=== PATIENT | female | born 1995 | race African-American/Black ===

== ENCOUNTER → 2017-07-03 | Outpatient (CLI) | payer OTHER ==
--- NOTE | 2017-07-03 15:37 | REP ---
Clinical: Anatomical evaluation. Comparison: None . Findings: Examination demonstrates a single live intrauterine in cephalic presentation. motion is identified by technologist. Placenta is noted anteriorly and grade zero without evidence for placenta previa or abruption. Amniotic fluid volume is normal. Cervix measures 3.5 cm in length and appears closed. No evidence for nuchal cord. Gestational age by LMP 90 weeks 6 days with SANDIP 11/21/2017 . Gestational age by current measurements 18 weeks 6 days with SANDIP 11/28/2017 . FHR equals 144 beats per minute. BPD 4.4 cm 19 weeks 2 days HC 15.8 cm 18 weeks 5 days AC 13.0 cm 18 weeks 4 days FL 3.1 cm 19 weeks 4 days HL 3.0 cm 19 weeks 6 days HC/AC ratio 1.21 Estimated weight 269 grams ( 50th percentile). Anatomical assessment demonstrates normal structures including cranium, choroid plexus, cavum, cerebellum/posterior fossa, facial features, lungs, four-chamber heart/ventricular outflow tracts, diaphragm, stomach, cord insertion/three-vessel cord, kidneys/bladder, spine, and extremities. Impression: Single live intrauterine in cephalic presentation demonstrating appropriate interval growth. Anatomical assessment is complete and normal. No gross abnormalities are identified. Signed by Nii Coles MD 07/03/2017 03:29 P
== END ==
LOC: M SMT 12:35
PROVIDERS: ATTEND Advanced Practice Midwife
DX: Z36.2 Encounter for other antenatal screening follow-up (principal); Z3A.19 19 weeks gestation of pregnancy

== ENCOUNTER → 2017-08-22 | Outpatient (CLI) | payer OTHER ==
[2017-08-22 12:11] LABS: GLUCOSE CHALLENGE TEST 1 HOUR 130 MG/DL (LESS THAN 140)
[2017-08-22 12:13] LABS: MEAN CORPUSCULAR HEMOGLOBIN 30.8 pg (27.0-33.0); MEAN CORPUSCULAR HGB CONC 33.3 g/dl (32.0-36.5); MEAN CORPUSCULAR VOLUME 92.3 fl (80.0-96.0); PLATELET COUNT, AUTOMATED 252 10^3/uL (150-450); RED CELL DISTRIBUTION WIDTH 12.5 % (11.5-14.5); WHITE BLOOD COUNT 10.1 10^3/uL (4.0-10.0)
== END ==
LOC: M SMT 09:42
DX: Z34.82 Encounter for supervision of other normal pregnancy, second trimester (principal)
CPT/HCPCS: 82950

== ENCOUNTER → 2017-09-20 | Outpatient (CLI) | payer OTHER | LOC: M SMT 12:55 | DX: Z34.83 Encounter for supervision of other normal pregnancy, third trimester (principal) | CPT/HCPCS: 76816 ==

== ENCOUNTER → 2017-10-28 | Outpatient (CLI) | payer OTHER | LOC: M SMT 11:03 | DX: O26.843 Uterine size-date discrepancy, third trimester (principal); Z3A.36 36 weeks gestation of pregnancy | CPT/HCPCS: 87081 ==

== ENCOUNTER → 2017-10-28 | Outpatient (REF) | payer OTHER | LOC: M LAB REF 12:00 | DX: Z34.83 Encounter for supervision of other normal pregnancy, third trimester (principal) ==

== ENCOUNTER 2017-11-22 02:05 | Inpatient (IN) | payer OTHER ==
[2017-11-22] MEDS: LR 1,000 ML IV ×3 (05:44→21:44)
[2017-11-22] MEDS: LACTATED RINGER'S 1000 ML IV (05:44)
[2017-11-22 06:36] LABS: HEMATOCRIT 40.2 % (36.0-47.0); HEMOGLOBIN 13.7 g/dl (12.0-15.5); MEAN CORPUSCULAR HGB CONC 34.1 g/dl (32.0-36.5); PLATELET COUNT, AUTOMATED 256 10^3/uL (150-450); RED BLOOD COUNT 4.57 10^6/uL (4.00-5.40); RED CELL DISTRIBUTION WIDTH 13.1 % (11.5-14.5); WHITE BLOOD COUNT 15.2 10^3/uL (4.0-10.0)
[2017-11-22] MEDS ORDERED: FENTANYL 2MCG/ML ROPIVACAINE 0.2% IN 0.9% NACL 200ML IVBAG As Ordered (07:31)
[2017-11-22] MEDS ORDERED: ONDANSETRON 4MG/2ML VIAL (J2405) IV (09:00)
[2017-11-22] MEDS ORDERED: LACTATED RINGER'S 1000 ML IV (09:00)
[2017-11-22] MEDS ORDERED: EPIDURAL/PCA KEYS XX (09:00)
[2017-11-22] MEDS ORDERED: ePHEDrine SULFATE 25 MG/5 ML(5MG/ML) SYRINGE IV (09:00)
[2017-11-22] MEDS ORDERED: REFRIGERATOR IV KEYS XX (09:00)
[2017-11-22] MEDS ORDERED: diphenhydrAMINE INJ 50MG/ML VIAL (J1200) IV (09:00)
[2017-11-22] MEDS ORDERED: NALOXONE INJ 0.4 MG/1 ML VIAL (J2310) IV (09:00)
[2017-11-22] MEDS: FENTANYL/ROPIVACAINE/NACL BAG 200 ML EPIDURAL (09:00)
[2017-11-22] MEDS ORDERED: EPIDURAL COMMENT XX (09:00)
[2017-11-22 10:43] LABS: HBSAG L&D NEGATIVE (NEGATIVE)
[2017-11-22] MEDS: OXYTOCIN DRIP 30 UNITS in APPROPRIATE DILUENT 1 EA IV ×2 (10:48→22:00)
[2017-11-22] MEDS ORDERED: DIBUCAINE 1% OINTMENT 30GM TOP (22:00)
[2017-11-22] MEDS ORDERED: DOCUSATE SODIUM 100 MG CAP PO (22:00)
[2017-11-22] MEDS ORDERED: ACETAMINOPHEN 500 MG TAB PO (22:00)
[2017-11-22] MEDS ORDERED: METHYLERGONOVINE MALEATE 0.2 MG TAB PO (22:00)
[2017-11-23] MEDS: IBUPROFEN 800 MG TAB PO ×2 (00:56→14:27)
[2017-11-23] MEDS: PRENATAL VITAMINS CHEWABLE TABLET PO (09:57)
[2017-11-23] MEDS: MEASLES,MUMPS,RUBELLA VACCINE INJ (MMR-II) (90707) SC (14:53)
[2017-11-23] MEDS: RHOGAM 300 MCG (1500 IU) INJ (J2790) IM (14:53)
[2017-11-24] MEDS: PRENATAL VITAMINS CHEWABLE TABLET PO (08:17)
[2017-11-24] MEDS: IBUPROFEN 800 MG TAB PO (08:17)
== END 2017-11-24 12:25 | disposition home or self-care (01) | DRG 775 ==
LOC: M LDO 02:05 → M LDI 05:46 → M OBS 17:56
PROVIDERS: Obstetrics & Gynecology
PROC: 10E0XZZ Delivery of Products of Conception, External Approach (ICD-10-PCS; principal; 2017-11-22)
PROC: 0HQ9XZZ Repair Perineum Skin, External Approach (ICD-10-PCS; 2017-11-22)
DX: O48.0 Post-term pregnancy (principal); Z37.0 Single live birth; Z3A.40 40 weeks gestation of pregnancy; O70.0 First degree perineal laceration during delivery